=== PATIENT | male | born 1935 | race Hispanic/Latino ===

== ENCOUNTER 2024-06-29 05:37 | Day surgery (SDC) | payer OTHER ==
[2024-06-29] VITALS (10 sets, daily range): BP systolic 150–178; BP diastolic 53–65; PULSE 51–64; RESP 12–17; TEMP 96.7–97.7
[~2024-06-29] VITALS: Ht 165.1 cm; Wt 70.3 kg
[~2024-06-29 05:37] MED LIST: LOSA100T59 PO; TAMS-1 PO
[2024-06-29] MEDS: 0.9%NACL 1000ML 1,000 ML IV ONE (06:12)
[2024-06-29] MEDS ORDERED: proPOFol 10 MG/ML 20ML VIAL IV ONE (07:08)
[2024-06-29] MEDS ORDERED: LIDOCAINE HCL 1% 20 ML VIAL ONE (07:09)
== END 2024-06-29 08:40 | disposition home or self-care (01) ==
LOC: DAH 05:37 → ENDO 05:37
PROVIDERS: ATTEND Internal Medicine Gastroenterology
DX: K92.1 Melena (principal); K29.80 Duodenitis without bleeding; K29.50 Unspecified chronic gastritis without bleeding; K57.30 Diverticulosis of large intestine without perforation or abscess without bleeding; K64.0 First degree hemorrhoids; K63.89 Other specified diseases of intestine; D50.9 Iron deficiency anemia, unspecified; K31.89 Other diseases of stomach and duodenum; I10 Essential (primary) hypertension; E11.9 Type 2 diabetes mellitus without complications; D69.6 Thrombocytopenia, unspecified; M19.90 Unspecified osteoarthritis, unspecified site; K59.04 Chronic idiopathic constipation; Z90.49 Acquired absence of other specified parts of digestive tract; Z98.49 Cataract extraction status, unspecified eye; Z86.718 Personal history of other venous thrombosis and embolism; Z79.899 Other long term (current) drug therapy
CPT/HCPCS: 45380; 43239; 82948 ×2; J7030; J2704; A4620; A4215; J3490